=== PATIENT | male | born 1955 | race Caucasian/White ===

== ENCOUNTER 2021-08-08 17:12 | Inpatient (IN) | payer OTHER ==
[~2021-08-08 17:12] MED LIST: Iopamidol-370 76% 500 ML 1 ML ONE
[2021-08-08] MEDS ORDERED: Morphine 4 MG/ML VIAL ONE (17:25)
[2021-08-08] MEDS ORDERED: Ketorolac Tromethamine 30 MG/ML VIAL ONE (17:25)
[2021-08-08 17:37] LABS: Hemoglobin 15.6 g/dL (14.0-18.0); Mean Corpuscular Hemoglobin 30.3 pg (27.0-31.0); Mean Corpuscular Volume 94.8 fL (78.0-98.0); Mean Platelet Volume 9.4 fL (7.4-10.4); Platelet Count 196 thou/uL (130-400); RBC Distribution Width 11.8 % (11.5-14.5); Red Blood Cell (RBC) Count 5.16 mill/uL (4.70-6.10); White Blood Cell (WBC) Count 26.6 thou/uL (4.8-10.8)
[2021-08-08 17:51] LABS: Band 8 % (5-11); Lymphocytes 8 % (21-51); MDiff Complete? YES; Monocytes 6 % (0-10); Neutrophil 72 % (42-75); Platelet Morphology Comment Appears Adequate; Polychromasia SLIGHT = 2-3 cells (100X) (0-2/hpf); Reactive Lymphocytes 6 % (0-10); Stomatocytes SLIGHT = 2-5 cells (100X) (0-1/hpf)
[2021-08-08 17:59] LABS: ALT (SGPT) 18 U/L (8-55); AST (SGOT) 19 U/L (5-34); Albumin 4.2 g/dL (3.4-4.8); Alkaline Phosphatase 88 U/L (40-110); Anion Gap 12 mmol/L (10-20); BUN (Urea Nitrogen) 17 mg/dL (8.4-25.7); Bilirubin, Total 0.7 mg/dL (0.2-1.2); Calc. Creatinine Clearance 0 mL/min (70-130); Calcium 10.3 mg/dL (7.8-10.44); Carbon Dioxide 24 mmol/L (23-31); Chloride 106 mmol/L (98-107); Globulin 2.6 g/dL (2.4-3.5); Glucose 158 mg/dL (80-115); Potassium 4.4 mmol/L (3.5-5.1); Protein, Total 6.8 g/dL (5.8-8.1); Sodium 138 mmol/L (136-145)
[2021-08-08 20:10] LABS: Magnesium 1.9 mg/dL (1.6-2.6); Phosphorus 2.6 mg/dL (2.3-4.7)
[2021-08-08] MEDS ORDERED: Dextrose 50% Abboject 50 ML SYRINGE SLOW IVP PRN (20:17)
[2021-08-08] MEDS ORDERED: Dextrose 5% in Water 1,000 ML IV PRN (20:17)
[2021-08-08] MEDS ORDERED: Ondansetron PF 4 MG/2 ML Vial IVP PRN (20:17)
[2021-08-08] MEDS ORDERED: Morphine 4 MG/ML VIAL SLOW IVP PRN (20:17)
[2021-08-08] MEDS ORDERED: hydrALAZINE 20 MG/ML VIAL SLOW IVP PRN (20:17)
[2021-08-08] MEDS ORDERED: traMADol HCl 50 MG TAB PO PRN (20:20)
[2021-08-08] MEDS ORDERED: traMADol HCl 50 MG TAB ONE (20:31)
[2021-08-08] MEDS ORDERED: Cyclobenzaprine 10 MG TAB ONE (20:31)
[2021-08-08] MEDS: Sodium Chloride 0.9% 1,000 ML IV SCH (22:35)
[2021-08-08] MEDS: Gabapentin 300 MG CAP PO SCH (22:36)
[2021-08-08] MEDS: Senokot S 8.6-50 MG TAB PO SCH (22:36)
[2021-08-08 22:52] VITALS: BMI 27.7
[2021-08-08] MEDS: Famotidine 20 MG TAB PO SCH (23:15)
[2021-08-08] MEDS: traMADol HCl 50 MG TAB PO SCH (23:33)
[2021-08-08] MEDS: Acetaminophen 500 MG TAB PO SCH (23:36)
[2021-08-08] MEDS ORDERED: Sodium Phosphate 15 MMOL in Sodium Chloride 0.9% 250 ML 250 ML IVPB SCH (23:59)
[2021-08-09 00:32] LABS: SARS-CoV-2 NAA Rapid Test Not Detected (NotDetected)
[2021-08-09] MEDS: Acetaminophen 500 MG TAB PO SCH ×3 (05:19→17:32)
[2021-08-09] MEDS: traMADol HCl 50 MG TAB PO SCH ×3 (05:19→17:31)
[2021-08-09 08:00] LABS: Bilirubin Negative (Negative); Blood, Urine 2+ (Negative); Clarity Clear (Clear); Glucose, Urine (Dipstick) Normal (Negative); Ketone, Urine Trace mg/dL (Negative); Leukocyte Negative Leu/uL (Negative); Nitrite Negative (Negative); Protein, Urine (Dipstick) 20 mg/dL (Neg-Trace); RBC/HPF 21-50 HPF (0-3); Squamous Epithelial 0-3 HPF (0-3); Urobilinogen Normal mg/dL (Less than 2); pH, Urine 5.5 (5.0-9.0)
[2021-08-09 08:03] LABS: Bacteria/HPF Rare-Few HPF (None Seen); Specific Gravity, Urine 1.054 (1.002-1.036)
[2021-08-09] MEDS: Gabapentin 300 MG CAP PO SCH ×3 (08:40→20:24)
[2021-08-09] MEDS: Metoprolol Tartrate 50 MG TAB PO SCH (08:40)
[2021-08-09] MEDS: Senokot S 8.6-50 MG TAB PO SCH ×2 (08:40→20:24)
[2021-08-09] MEDS: Famotidine 20 MG TAB PO SCH ×2 (08:40→20:24)
[2021-08-09] MEDS: Polyethylene Glycol 3350 17 GM Packet PO SCH (08:42)
[2021-08-09] MEDS: Cyclobenzaprine 10 MG TAB PO PRN (08:45)
[2021-08-09 09:38] LABS: Anion Gap 12 mmol/L (10-20); BUN (Urea Nitrogen) 25 mg/dL (8.4-25.7); Calc. Creatinine Clearance 72 mL/min (70-130); Calcium 9.3 mg/dL (7.8-10.44); Carbon Dioxide 24 mmol/L (23-31); Chloride 103 mmol/L (98-107); Glucose 152 mg/dL (80-115); Phosphorus 5.4 mg/dL (2.3-4.7); Potassium 4.3 mmol/L (3.5-5.1); Sodium 135 mmol/L (136-145)
[2021-08-09] MEDS: Silver Sulfadiazine 50 GM TUBE TOP SCH ×2 (10:19→20:24)
[2021-08-09] MEDS: Sodium Chloride 0.9% 1,000 ML IV SCH ×2 (14:37→19:32)
[2021-08-09 18:20] LABS: Hemoglobin 11.8 g/dL (14.0-18.0); Mean Corpuscular HGB CONC 33.6 g/dL (32.0-36.0); Mean Corpuscular Hemoglobin 31.7 pg (27.0-31.0); Mean Corpuscular Volume 94.5 fL (78.0-98.0); Mean Platelet Volume 9.4 fL (7.4-10.4); Platelet Count 155 thou/uL (130-400); RBC Distribution Width 11.7 % (11.5-14.5); Red Blood Cell (RBC) Count 3.73 mill/uL (4.70-6.10); White Blood Cell (WBC) Count 12.7 thou/uL (4.8-10.8)
[2021-08-09 18:34] LABS: Lymphocytes 5 % (21-51); MDiff Complete? YES; Monocytes 12 % (0-10); Neutrophil 79 % (42-75); Platelet Morphology Comment Appears Adequate; Polychromasia SLIGHT = 2-3 cells (100X) (0-2/hpf); Reactive Lymphocytes 4 % (0-10)
[2021-08-09] MEDS: Atorvastatin Calcium 40 MG TAB PO SCH (20:24)
[2021-08-10] MEDS: Acetaminophen 500 MG TAB PO SCH ×5 (00:09→23:29)
[2021-08-10] MEDS: traMADol HCl 50 MG TAB PO SCH ×5 (00:09→23:29)
[2021-08-10] MEDS: Sodium Chloride 0.9% 1,000 ML IV SCH ×3 (01:31→13:59)
[2021-08-10 06:17] LABS: #Eosinphils 0.3 thou/uL (0.0-0.7); #Lymphocytes 1.6 thou/uL (1.20-3.40); #Monocytes 1.9 thou/uL (0.11-0.59); #Neutrophils 9.3 thou/uL (1.40-6.50); %Basophils 0.2 % (0.0-1.0); %Eosinophils 2.4 % (0.0-10.0); %Lymphocytes 11.8 % (21.0-51.0); %Monocytes 14.7 % (0.0-10.0); %Neutrophils 70.9 % (42.0-75.0); Hemoglobin 11.6 g/dL (14.0-18.0); Mean Corpuscular HGB CONC 32.2 g/dL (32.0-36.0); Mean Corpuscular Hemoglobin 30.9 pg (27.0-31.0); Mean Corpuscular Volume 95.9 fL (78.0-98.0); Mean Platelet Volume 10.1 fL (7.4-10.4); Platelet Count 145 thou/uL (130-400); RBC Distribution Width 11.7 % (11.5-14.5); Red Blood Cell (RBC) Count 3.75 mill/uL (4.70-6.10); White Blood Cell (WBC) Count 13.2 thou/uL (4.8-10.8)
[2021-08-10 07:11] LABS: Anion Gap 9 mmol/L (10-20); BUN (Urea Nitrogen) 22 mg/dL (8.4-25.7); Calc. Creatinine Clearance 86 mL/min (70-130); Calcium 9.1 mg/dL (7.8-10.44); Carbon Dioxide 23 mmol/L (23-31); Chloride 109 mmol/L (98-107); Glucose 93 mg/dL (80-115); Magnesium 1.9 mg/dL (1.6-2.6); Phosphorus 2.6 mg/dL (2.3-4.7); Potassium 4.2 mmol/L (3.5-5.1); Sodium 137 mmol/L (136-145)
[2021-08-10] MEDS: Famotidine 20 MG TAB PO SCH ×2 (09:36→21:09)
[2021-08-10] MEDS: Metoprolol Tartrate 50 MG TAB PO SCH (09:36)
[2021-08-10] MEDS: Gabapentin 300 MG CAP PO SCH ×3 (09:36→21:09)
[2021-08-10] MEDS: Senokot S 8.6-50 MG TAB PO SCH ×2 (09:37→21:10)
[2021-08-10] MEDS: Polyethylene Glycol 3350 17 GM Packet PO SCH (09:37)
[2021-08-10] MEDS: Cyclobenzaprine 10 MG TAB PO PRN (09:37)
[2021-08-10] MEDS: Silver Sulfadiazine 50 GM TUBE TOP SCH ×2 (09:37→21:07)
[2021-08-10] MEDS: Atorvastatin Calcium 40 MG TAB PO SCH (21:09)
[2021-08-11] MEDS: traMADol HCl 50 MG TAB PO SCH ×3 (05:02→18:03)
[2021-08-11] MEDS: Acetaminophen 500 MG TAB PO SCH ×3 (05:02→18:03)
[2021-08-11] MEDS: Senokot S 8.6-50 MG TAB PO SCH (09:30)
[2021-08-11] MEDS: Famotidine 20 MG TAB PO SCH ×2 (09:30→21:55)
[2021-08-11] MEDS: Silver Sulfadiazine 50 GM TUBE TOP SCH ×2 (09:31→21:55)
[2021-08-11] MEDS: Gabapentin 300 MG CAP PO SCH ×3 (09:31→21:55)
[2021-08-11] MEDS: Metoprolol Tartrate 50 MG TAB PO SCH (09:31)
[2021-08-11] MEDS: Polyethylene Glycol 3350 17 GM Packet PO SCH (09:31)
[2021-08-11] MEDS: Enoxaparin Sodium 40 MG/0.4 ML SYRINGE SC SCH (09:32)
[2021-08-11] MEDS ORDERED: Senokot S 8.6-50 MG TAB PO PRN (10:18)
[2021-08-11] MEDS ORDERED: Polyethylene Glycol 3350 17 GM Packet PO PRN (10:53)
[2021-08-11] MEDS: Atorvastatin Calcium 40 MG TAB PO SCH (21:55)
[2021-08-12] MEDS: traMADol HCl 50 MG TAB PO SCH ×4 (00:47→17:41)
[2021-08-12] MEDS: Acetaminophen 500 MG TAB PO SCH ×4 (00:47→17:41)
[2021-08-12] MEDS: Famotidine 20 MG TAB PO SCH ×2 (09:14→20:17)
[2021-08-12] MEDS: Silver Sulfadiazine 50 GM TUBE TOP SCH ×2 (09:14→20:17)
[2021-08-12] MEDS: Gabapentin 300 MG CAP PO SCH ×3 (09:14→20:16)
[2021-08-12] MEDS: Enoxaparin Sodium 40 MG/0.4 ML SYRINGE SC SCH (09:14)
[2021-08-12] MEDS: Metoprolol Tartrate 50 MG TAB PO SCH (09:14)
[2021-08-12] MEDS: Atorvastatin Calcium 40 MG TAB PO SCH (20:16)
[2021-08-13] MEDS: Acetaminophen 500 MG TAB PO SCH ×2 (00:36→05:47)
[2021-08-13] MEDS: traMADol HCl 50 MG TAB PO SCH ×2 (00:37→05:48)
[2021-08-13] MEDS: Famotidine 20 MG TAB PO SCH ×2 (09:06→20:05)
[2021-08-13] MEDS: Gabapentin 300 MG CAP PO SCH (09:07)
[2021-08-13] MEDS: Silver Sulfadiazine 50 GM TUBE TOP SCH ×2 (09:07→20:57)
[2021-08-13] MEDS: Enoxaparin Sodium 40 MG/0.4 ML SYRINGE SC SCH (09:07)
[2021-08-13] MEDS: Lisinopril 20 MG TAB PO SCH (09:07)
[2021-08-13] MEDS: Metoprolol Tartrate 50 MG TAB PO SCH (09:07)
[2021-08-13] MEDS ORDERED: traMADol HCl 50 MG TAB PO PRN (11:03)
[2021-08-13] MEDS: Acetaminophen/Codeine 30-300mg Tablet PO SCH ×3 (11:57→23:21)
[2021-08-13] MEDS: Gabapentin 100 MG CAP PO SCH ×2 (15:24→20:05)
[2021-08-13] MEDS: Atorvastatin Calcium 40 MG TAB PO SCH (20:06)
[2021-08-13] MEDS: tiZANidine HCl 4 MG TAB PO SCH (20:06)
[2021-08-14] MEDS: Acetaminophen/Codeine 30-300mg Tablet PO SCH ×4 (06:01→23:19)
[2021-08-14] MEDS: Enoxaparin Sodium 40 MG/0.4 ML SYRINGE SC SCH (09:30)
[2021-08-14] MEDS: Famotidine 20 MG TAB PO SCH ×2 (09:31→20:14)
[2021-08-14] MEDS: Lisinopril 20 MG TAB PO SCH (09:31)
[2021-08-14] MEDS: Gabapentin 100 MG CAP PO SCH ×3 (09:31→20:14)
[2021-08-14] MEDS: tiZANidine HCl 4 MG TAB PO SCH ×2 (09:31→20:14)
[2021-08-14] MEDS: Metoprolol Tartrate 50 MG TAB PO SCH (09:32)
[2021-08-14] MEDS: Silver Sulfadiazine 50 GM TUBE TOP SCH ×2 (09:32→20:14)
[2021-08-14] MEDS: Atorvastatin Calcium 40 MG TAB PO SCH (20:14)
[2021-08-15] MEDS: Acetaminophen/Codeine 30-300mg Tablet PO SCH ×2 (06:20→12:32)
[2021-08-15] MEDS: Famotidine 20 MG TAB PO SCH (08:53)
[2021-08-15] MEDS: Lisinopril 20 MG TAB PO SCH (08:53)
[2021-08-15] MEDS: Enoxaparin Sodium 40 MG/0.4 ML SYRINGE SC SCH (08:54)
[2021-08-15] MEDS: Gabapentin 100 MG CAP PO SCH ×2 (08:54→15:28)
[2021-08-15] MEDS: tiZANidine HCl 4 MG TAB PO SCH (08:54)
[2021-08-15] MEDS: Silver Sulfadiazine 50 GM TUBE TOP SCH (08:54)
[2021-08-15 17:08] VITALS: BP 136/87; TEMP 98.1
== END 2021-08-15 20:22 | DRG 964 ==
LOC: ERS 17:12 → SURG A 20:17
PROVIDERS: ADMIT Surgery; ATTEND Surgery
DX: S42.101A Fracture of unspecified part of scapula, right shoulder, initial encounter for closed fracture (principal); S32.511A Fracture of superior rim of right pubis, initial encounter for closed fracture; N17.9 Acute kidney failure, unspecified; S74.11XA Injury of femoral nerve at hip and thigh level, right leg, initial encounter; Z20.822 Contact with and (suspected) exposure to COVID-19; E78.5 Hyperlipidemia, unspecified; I12.9 Hypertensive chronic kidney disease with stage 1 through stage 4 chronic kidney disease, or unspecified chronic kidney disease; N18.9 Chronic kidney disease, unspecified; D72.829 Elevated white blood cell count, unspecified; Z98.890 Other specified postprocedural states; Z79.899 Other long term (current) drug therapy; W31.89XA Contact with other specified machinery, initial encounter
CPT/HCPCS: 36415; 71045; 71260; 74177; 80048; 80053; 81003; 81015; 82550; 83605; 83735; 84100; 85025; 87040; 96374; 96375; J1650; J1885; J2270; J7050; Q9967; U0002